=== PATIENT | male | born 1955 | race Caucasian/White ===

== ENCOUNTER 2017-02-22 05:53 | Day surgery (SDC) | payer OTHER ==
[2017-02-22] MEDS ORDERED: Versed 2 MG/2 ML Injection IV ONE (05:54)
[2017-02-22] MEDS ORDERED: DIPRIVAN 200 MG/20 ML IV ONE (05:54)
[2017-02-22] MEDS ORDERED: Lactated Ringers 1,000 ML IV SCH (06:30)
[2017-02-22] MEDS ORDERED: Lactated Ringers 1,000 ML IV ONE (07:27)
--- NOTE | 2017-02-22 08:41 | OP ---
SURGERY DATE/TIME: 02/22/2017 0700 PREOPERATIVE DIAGNOSIS: Screening colonoscopy. POSTOPERATIVE DIAGNOSIS: Hepatic flexure polyp and sigmoid colon polyp. PROCEDURE: Colonoscopy. SURGEON: Mo Rivas M.D. ANESTHESIA: MAC by Nahun Lerner CRNA. ESTIMATED BLOOD LOSS: Minimal. SPECIMENS: Hot forceps polypectomy, hepatic flexure polyp and sigmoid colon polyp. DESCRIPTION OF PROCEDURE: After informed written consent was obtained, the patient was taken to the endoscopy suite. He underwent monitored anesthesia and a digital rectal exam showed normal sphincter tone and no internal lesions. The scope was inserted into the rectum and sequentially the entire colonic mucosa was traversed. The level of cecum was reached and verified with direct visualization of ileocecal valve. Upon withdrawal there was a large broad based polyp seen at the hepatic flexure which was removed in piecemeal fashion with hot forceps polypectomy. The entire lesion appeared to be destroyed and removed in its entirety. Upon further withdrawal there was another smaller sessile polyp in the proximal sigmoid colon which was removed with hot forceps as well in its entirety. Upon further withdrawal no other lesions were encountered. There was some semisolid stool and liquid stool throughout the sigmoid colon and some scattered diverticulosis. Prior to withdrawal retroflexion was performed and showed no internal lesions. The scope was removed and the patient was transferred to the recovery room in excellent condition. He was advised to follow up in one week for pathology results.
[2017-02-22 08:54] VITALS: O2SAT 98
[2017-02-22 08:58] VITALS: BP 172/91; PULSE 102
== END 2017-02-22 08:40 | disposition home or self-care (01) ==
LOC: SDC 05:53
PROVIDERS: ATTEND Family Medicine
PROC: 0DBN8ZX Excision of Sigmoid Colon, Via Natural or Artificial Opening Endoscopic, Diagnostic (ICD-10-PCS; principal; 2017-02-22)
PROC: 0DBK8ZX Excision of Ascending Colon, Via Natural or Artificial Opening Endoscopic, Diagnostic (ICD-10-PCS; 2017-02-22)
DX: D12.2 Benign neoplasm of ascending colon (principal); D12.5 Benign neoplasm of sigmoid colon; Z12.11 Encounter for screening for malignant neoplasm of colon; E11.9 Type 2 diabetes mellitus without complications
CPT/HCPCS: 00840; 36415; 82962; 88305; J2250; J2704

== ENCOUNTER 2018-04-01 09:46 | Day surgery (SDC) | payer OTHER ==
--- NOTE | 2018-04-01 08:22 | HP ---
DATE OF SURGERY: 04/01/2018 HISTORY OF PRESENT ILLNESS: The patient is a 63 year-old with some occasional pain right abdomen, some loose stools. He said he had a trip to I think he said [place], now to worse degree. CT scan showed cholelithiasis. PAST MEDICAL HISTORY: Diabetes, hypertension, hyperlipidemia. PAST SURGICAL HISTORY: Cataract surgery in the past. MEDICATIONS: Atorvastatin, omega-3, metoprolol, Metformin, omeprazole, losartan, Victoza. ALLERGIES: NKDA. FAMILY HISTORY: Diabetes, cancer, hypertension. SOCIAL HISTORY: No smoking or alcohol abuse. REVIEW OF SYSTEMS: Twelve systems reviewed. No chest pain or palpitations other systems negative or noncontributory as above and per preadmission questionnaire. PHYSICAL EXAMINATION: GENERAL: No acute distress. HEENT: Sclerae nonicteric. NECK: No JVD. CHEST: Equal excursion, nonlabored breathing. CVS: Regular rate and rhythm. ABDOMEN: Soft. No peritoneal signs. EXTREMITIES: No significant edema. NEURO: Alert, oriented, moving extremities symmetrically. No gross motor deficits noted. IMPRESSION: Symptomatic cholelithiasis, probable chronic cholecystitis. I feel the patient will benefit from cholecystectomy. Risks and benefits explained in detail including but not limited to bleeding or infection, risk of trocar injury or hernia, small risk of bowel, bladder or blood vessel injury, small risk of bile leak, bile duct injury, retained stone or sludge possibly requiring further procedure either open or ERCP, general risk of anesthesia, deep venous thrombosis, pulmonary embolism, pneumonia, perioperative risk of aches, pains, bloating, constipation and/or loose stools possibly even chronic in nature, possibility that this procedure may not improve his symptoms. He understands and agrees to the planned procedure, will proceed with laparoscopic cholecystectomy with possible open as an outpatient.
[~2018-04-01 09:46] MED LIST: Lactated Ringers 1,000 ML IV ONE; Lactated Ringers 1,000 ML IV SCH; MEFOXIN 2 GM PREMIX** 2 GM/50 ML ML IV ONE; MEFOXIN 2 GM** 2 GM in Dextrose 5%/Water IV Soln. 100ML PLUS BAG 100 ML IV ONE; Sensorcaine 0.25% 10 ML ONE
[2018-04-01] MEDS ORDERED: Versed 2 MG/2 ML Injection IV ONE (09:47)
[2018-04-01] MEDS ORDERED: Zemuron 100 MG/10 ML IJ ONE (09:47)
[2018-04-01] MEDS ORDERED: BRIDION 200MG/2ML IV ONE (09:47)
[2018-04-01] MEDS ORDERED: DIPRIVAN 200 MG/20 ML IV ONE (09:47)
[2018-04-01] MEDS ORDERED: SUBLIMAZE 250 MCG/5 ML IJ ONE (09:47)
[2018-04-01] MEDS ORDERED: LOPRESSOR 5 MG/5 ML INJECTION IV ONE (10:15)
[2018-04-01] MEDS ORDERED: APRESOLINE 20 MG/ML INJ IV ONE (11:15)
[2018-04-01] MEDS ORDERED: Lactated Ringers 1,000 ML IV SCH (12:00)
--- NOTE | 2018-04-01 13:23 | OP ---
SURGERY DATE/TIME: 04/01/2018 1208 PREOPERATIVE DIAGNOSIS: Cholelithiasis, chronic cholecystitis. POSTOPERATIVE DIAGNOSIS: Cholelithiasis, chronic cholecystitis. PROCEDURE: Laparoscopic cholecystectomy. SURGEON: Dr. Rosalino Graf. ANESTHESIA: General. ESTIMATED BLOOD LOSS: Minimal. INDICATIONS: As noted above. Risks and benefits explained in detail but not limited to and consent obtained. DESCRIPTION OF PROCEDURE AND FINDINGS: The patient was taken to the OR. General anesthesia induced. Abdomen prepped and draped in the usual sterile fashion. After official time out and no disagreement with planned procedure, a transverse incision made at the supraumbilical area. Fascia grasped and pulled upward. Veress needle inserted and tested with saline. Pneumoperitoneum accomplished insufflating opening pressure of 0-15. An 11 mm bladeless port and camera inserted without difficulty followed by two - 5 mm right upper quadrant ports and 5 mm epigastric portion. Gallbladder grasped retracted over the edge of the liver. It had fibrofatty omental adhesions. These are slowly and carefully taken down posterior-lateral to anterior fashion. Main cystic artery and cystic duct infundibulum slowly and carefully well skeletonized until critical view obtained both anterior and posterior. Once this was accomplished, cystic duct and cystic artery clipped x2 and divided in usual fashion. Gallbladder slowly and carefully dissected free from its dense almost concrete attachments to the liver bed staying directly on the gallbladder wall clipping additional oozing side branches off the cystic artery as necessary directly on the gallbladder wall. Just prior to releasing from final attachments to the anterior edge of the liver, the grasper tore a small pinhole in the gallbladder spilling a small amount of bile. There was no evidence of any stone spillage. The gallbladder was released from its final attachments, placed in a Pleatman sac and pulled up. However the Pleatman sac tore and pulled apart. It required the gallbladder to be drawn back in the abdomen. The Pleatman sac removed intact and passed off. With a new Pleatman sac used the gallbladder had been decompressed even further, placed in Pleatman sac pulled free and passed off intact. Port is replaced. Copious amount of irrigation accomplished laterally out to the liver and subhepatic space irrigating until clear. The liver bed re-inspected. Clips are noted in place in cystic duct and cystic artery stumps. There is no sign of any active bleeding or bile leakage. I felt there is no benefit from drain placement. Fascia defect 03/28 closed with puncture closure device with #1 Vicryl. Pneumoperitoneum decompressed. The wound was irrigated out. Skin incision closed with 4-0 Vicryl. Steri-Strips and sterile dressing applied. 0.25% Marcaine local injected along the skin incision fascial defect. The patient tolerated the procedure well. There were no immediate complications. Findings discussed with the family out in the waiting area.
[2018-04-01] MEDS ORDERED: MORPHINE SULFATE 4 MG INJ IV PRN (13:48)
[2018-04-01 14:22] VITALS: BP 127/76; PULSE 91; O2SAT 98
== END 2018-04-01 14:40 | disposition home or self-care (01) ==
LOC: SDC 09:46
PROVIDERS: ATTEND Surgery
DX: K80.10 Calculus of gallbladder with chronic cholecystitis without obstruction (principal); E11.9 Type 2 diabetes mellitus without complications; Z79.4 Long term (current) use of insulin; I10 Essential (primary) hypertension; E78.5 Hyperlipidemia, unspecified; Z79.899 Other long term (current) drug therapy
CPT/HCPCS: 82962; 88304; 94250; J0360; J0694; J2250; J2270; J2704; J3010

== ENCOUNTER 2019-02-19 13:20 | Day surgery (SDC) | payer OTHER | END 2019-02-19 15:00 | disposition home or self-care (01) | LOC: SDC-PAIN 13:20 | PROVIDERS: ATTEND Psychiatry & Neurology Pain Medicine | DX: Z53.9 Procedure and treatment not carried out, unspecified reason (principal) ==